=== PATIENT | male | born 1970 | race Two or more races ===

== ENCOUNTER 2022-07-01 13:07 | Emergency (ER) | payer BC ==
[~2022-07-01] VITALS: Ht 182.9 cm; Wt 124.7 kg
--- NOTE | 2022-07-01 13:23 | NUR ---
IN ROOM FOR EVAL.
--- NOTE | 2022-07-01 13:25 | NUR ---
PT 89% ON ROOM AIR PLACED ON 2L NC
--- NOTE | 2022-07-01 13:45 | NUR ---
18G BLOOD DRAWN AND SENT TO LAB.
--- NOTE | 2022-07-01 13:57 | NUR ---
covid swab collected and sent to lab
--- NOTE | 2022-07-01 14:04 | NUR ---
US TECH AT [facility].
[2022-07-01 14:06] LABS: BASOPHILS % (AUTO) 0.3 % (0.0-2.0); EOSINOPHILS % (AUTO) 0.1 % (0.0-6.0); HEMATOCRIT 39 % (39-51); LYMPHOCYTES % (AUTO) 6.6 % (20.0-44.0); MEAN CORPUSCULAR HGB CONC 33 g/dl (31.0-36.0); MEAN CORPUSCULAR VOLUME 91 fL (80-96); MONOCYTES # (AUTO) 0.6 K/uL (0.1-1.30); MONOCYTES % (AUTO) 3.8 % (2.0-12.0); NEUTROPHILS # (AUTO) 13.4 K/uL (1.8-8.9); NEUTROPHILS % (AUTO) 89.2 % (43.0-81.0); PLATELET COUNT (AUTO) 217 K/uL (150-450); RED BLOOD CELL COUNT(AUTO) 4.33 MIL/uL (4.5-6.0)
[2022-07-01 14:23] LABS: CALCIUM, SERUM 8.9 mg/dL (8.5-10.1); CARBON DIOXIDE 24 mmol/L (21-32); CHLORIDE 102 mmol/L (98-107); CREATININE 1.2 mg/dL (0.6-1.3); GLUCOSE 124 mg/dL (74-106); POTASSIUM 3.4 mmol/L (3.5-5.1); SODIUM SERUM 136 mmol/L (136-145); UREA NITROGEN, BLOOD 12 mg/dL (7-18)
[2022-07-01] MEDS ORDERED: ACETAMINOPHEN ES 500 MG TABLET ONE (14:37)
[2022-07-01] MEDS ORDERED: IV NS 0.9% 250 ML IV ONE (16:29)
[2022-07-01] MEDS ORDERED: CT SWABBABLE VALVE TRANS SET 1 EA INFUS.SET MC ONE (16:29)
[2022-07-01] MEDS ORDERED: IOHEXOL-350 100 ML VIAL IV ONE (16:29)
--- NOTE | 2022-07-01 16:46 | NUR ---
PT BEING TAKEN TO CT.
[2022-07-01] MEDS ORDERED: IBUP-1955 PO (16:56)
[2022-07-01] MEDS ORDERED: AZIT250T13 PO (16:56)
[2022-07-01] MEDS ORDERED: AMOX-430 PO (16:56)
--- NOTE | 2022-07-01 18:40 | NUR ---
Patient discharged to home in stable condition. Written and verbal after care instructions given. Patient verbalizes understanding of instruction. IV removed. Catheter intact and site benign. Pressure and 4x4 applied to site. No bleeding noted.
[2022-07-01 18:41] VITALS: BP 151/71
== END 2022-07-01 18:42 | disposition home or self-care (01) ==
LOC: ER 13:13
DX: J06.9 Acute upper respiratory infection, unspecified (principal); J18.9 Pneumonia, unspecified organism; R50.9 Fever, unspecified; D72.829 Elevated white blood cell count, unspecified; R79.1 Abnormal coagulation profile; Z20.822 Contact with and (suspected) exposure to COVID-19
CPT/HCPCS: 99285; 93970; 71275; 71045; 93005 ×2; 85025; 80048; 85378; 36415; 84484; U0003; J7050; Q9967; C9803